=== PATIENT | female | born 1985 | race Two or more races ===

== ENCOUNTER 2025-07-07 13:15 | Emergency (ER) | payer OTHER ==
[~2025-07-07] VITALS: Ht 154.9 cm; Wt 74.8 kg
[~2025-07-07 13:15] MED LIST: CELEBREX100 MG PO; DIAZEPAM10 MG PO; SKELAXIN800 MG PO
[2025-07-07] MEDS ORDERED: ORPHENADRINE CITRATE 30 MG/ML AMPUL IM ONE (15:00)
[2025-07-07] MEDS ORDERED: KETOROLAC TROMETHAMINE 60 MG VIAL IM ONE ×2 (15:00→15:40)
[2025-07-07] MEDS ORDERED: DEXAMETHASONE SODIUM PHOSPHATE 4 MG/ML VIAL IM ONE (15:00)
[2025-07-07] MEDS ORDERED: ORPHENADRINE CITRATE 30 MG/ML AMPUL ONE (15:40)
[2025-07-07] MEDS ORDERED: DEXAMETHASONE SODIUM PHOSPHATE 4 MG/ML VIAL ONE (15:41)
[2025-07-07] MEDS ORDERED: NORFLEX100MG PO (18:14)
[2025-07-07] MEDS ORDERED: DICLOFENAC SODI50 MG PO (18:14)
== END 2025-07-07 18:22 ==
LOC: ER 13:16
DX: M62.830 Muscle spasm of back (principal)
CPT/HCPCS: 72100; 96372; 99283; J1200; J1885; J2360